=== PATIENT | female | born 1995 | race African-American/Black ===

== ENCOUNTER 2020-11-13 12:46 | Outpatient (REF) | payer OTHER, SELFPAY | END 2020-11-13 12:47 | disposition home or self-care (01) | LOC: HO.LAB 12:46 | PROVIDERS: Visit Provider Internal Medicine | DX: Z20.828 Contact with and (suspected) exposure to other viral communicable diseases (principal) | CPT/HCPCS: C9803; U0003 ==

== ENCOUNTER 2020-11-23 13:34 | Outpatient (REF) | payer OTHER, SELFPAY | END 2020-11-23 13:35 | disposition home or self-care (01) | LOC: HO.LAB 13:34 | PROVIDERS: Visit Provider Internal Medicine | DX: Z20.822 Contact with and (suspected) exposure to COVID-19 (principal) | CPT/HCPCS: 36415; C9803; U0003 ==